=== PATIENT | male | born 1965 | race Caucasian/White ===

== ENCOUNTER 2019-09-14 | Emergency (ER) | payer BC ==
--- NOTE | 2019-09-14 09:23 | ER ---
Nurse's Notes [facility] Name: Brody Ferrer Age: 53 yrs Sex: Male : 1965 Arrival Date: 09/14/2019 Time: 08:42 Bed 13 Private MD: Duane Truong Diagnosis: Conjunctival hemorrhage Presentation: 09/13 08:57 Chief complaint: Patient states: LEFT EYE SUBCONJUNCTIVAL HEMORRHAGE. Coronavirus bp screen: The patient has NOT traveled to a country currently being monitored by the [facility] within the last 14 days. The patient has NOT had contact with any known and/or suspected case of coronavirus. Ebola Screen: No symptoms or risks identified at this time. Initial Sepsis Screen: Does the patient meet any 2 criteria? No. Patient's initial sepsis screen is negative. Does the patient have a suspected source of infection? No. Patient's initial sepsis screen is negative. Risk Assessment: Do you want to hurt yourself or someone else? Patient reports no desire to harm self or others. 08:57 Method Of Arrival: Ambulatory bp 08:57 Acuity: SANGEETHA 5 bp Triage Assessment: 09:00 General: Appears in no apparent distress. comfortable, obese, Behavior is cooperative, bp appropriate for age, anxious. Pain: Complains of pain in left eye. EENT: Sclera/Cornea are reddened in left eye. Neuro: No deficits noted. Cardiovascular: No deficits noted. Respiratory: No deficits noted. GI: No signs and/or symptoms were reported involving the gastrointestinal system. : No signs and/or symptoms were reported regarding the genitourinary system. Derm: No deficits noted. Musculoskeletal: No deficits noted. Historical: - Allergies: 09:00 No Known Allergies; bp - Home Meds: 09:00 None [Active]; bp - PMHx: 09:00 None; bp - Immunization history:: Adult Immunizations up to date. - Social history:: Smoking status: Patient denies any tobacco usage or history of. Screenin:02 Abuse screen: Denies threats or abuse. Denies injuries from another. Nutritional bp screening: No deficits noted. Tuberculosis screening: No symptoms or risk factors identified. Fall Risk None identified. Assessment: 09:02 General: SEE TRIAGE NOTE. bp 09:37 Reassessment: PT MED SCREENED BY ELIJAH. bp Vital Signs: 08:57 BP 131 / 77; Pulse 55; Resp 16; Temp 98; Pulse Ox 97% ; Weight 133.81 kg; Height 6 ft. bp 3 in. (190.50 cm); 09:19 BP 127 / 75; Pulse 56; Resp 16; Pulse Ox 97% ; bp 08:57 Body Mass Index 36.87 (133.81 kg, 190.50 cm) bp ED Course: 08:42 Patient arrived in ED. ag5 08:42 Duane Truong MD is Private Physician. ag5 08:57 Duane Alvarez, RN is Primary Nurse. bp 08:57 Vishal Deleon PA is PHCP. [facility] 08:57 Travis Garcia MD is Attending Physician. [facility] 08:59 Triage completed. bp 09:00 Arm band placed on. bp 09:02 Patient has correct armband on for positive identification. Bed in low position. Call bp light in reach. Side rails up X2. 09:37 No provider procedures requiring assistance completed. Patient did not have IV access bp during this emergency room visit. Administered Medications: No medications were administered Outcome: 09:22 Discharge ordered by . [facility] 09:38 Medical screen evaluation completed per provider. Patient declined treatment. bp 09:38 Condition: stable 09:38 Discharge instructions given to patient. 09:38 Patient left the ED. bp Signatures: Vishal Deleon PA PA jmm Peltier, Brian, RN RN bp Leon Aviles 5
--- NOTE | 2019-09-14 09:23 | EDPHYS ---
Physician Documentation [facility] Name: Brody Ferrer Age: 53 yrs Sex: Male : 1965 Arrival Date: 09/14/2019 Time: 08:42 Bed 13 Private MD: Duane Truong ED Physician Travis Garcia HPI: 09/13 09:00 This 53 yrs old Male presents to ER via Ambulatory with complaints of Eye jmm Problem. 09:00 The patient is experiencing redness. Onset: The symptoms/episode began/occurred jmm acutely, yesterday. Duration: the symptoms are continuous. Aggravated by nothing. Alleviated by tylenol. Associated signs and symptoms: Pertinent negatives: fever. This is a 53 year old male with no known chronic medical conditions that presents to the ED with complaints of redness to his left eye beginning yesterday. Patient was evaluated by his optomitrist and diagnosed with a bruise. Patient had his pressure checked at an urgent care. Patient came to the ED due to elevated blood pressure at home. Patient denies chest pain, headache, dysuria, abdominal pain or shortness of breath. . Historical: - Allergies: 09:00 No Known Allergies; bp - Home Meds: 09:00 None [Active]; bp - PMHx: 09:00 None; bp - Immunization history:: Adult Immunizations up to date. - Social history:: Smoking status: Patient denies any tobacco usage or history of. ROS: 09:00 Constitutional: Negative for fever, chills, and weight loss. jmm 09:00 Cardiovascular: Negative for chest pain, palpitations, and edema, Respiratory: Negative for shortness of breath, cough, wheezing, and pleuritic chest pain, Abdomen/GI: Negative for abdominal pain, nausea, vomiting, diarrhea, and constipation, Back: Negative for injury and pain, Neuro: Negative for headache, weakness, numbness, tingling, and seizure. 09:00 Eyes: Positive for redness. 09:00 All other systems are negative. Exam: 09:00 Constitutional: This is a well developed, well nourished patient who is awake, alert, jmm and in no acute distress. Head/Face: atraumatic. 09:00 ENT: Moist Mucus Membranes Neck: Trachea midline, Supple Chest/axilla: Normal chest wall appearance and motion. Cardiovascular: Regular rate and rhythm. No edema appreciated Respiratory: Normal respirations, no respiratory distress appreciated Abdomen/GI: Non distended, soft Back: Normal ROM Skin: General appearance color normal MS/ Extremity: Moves all extremities, no obvious deformities appreciated, no edema noted to the lower extremities Neuro: Awake and alert, normal gait Psych: Behavior is normal, Mood is normal, Patient is cooperative and pleasant 09:00 Eyes: Conjunctiva: subconjunctival hemorrhage(s), seen in the left eye. Vital Signs: 08:57 BP 131 / 77; Pulse 55; Resp 16; Temp 98; Pulse Ox 97% ; Weight 133.81 kg; Height 6 ft. bp 3 in. (190.50 cm); 09:19 BP 127 / 75; Pulse 56; Resp 16; Pulse Ox 97% ; bp 08:57 Body Mass Index 36.87 (133.81 kg, 190.50 cm) bp MDM: 09:00 Patient medically screened. [facility] 09:17 Data reviewed: vital signs, nurses notes. Medical screen evaluation completed. AXEL solorzano emergency medical condition absent. Administered Medications: No medications were administered Disposition: 09:17 Subconjunctival Hemorrhage. [facility] 16:28 Co-signature as Attending Physician, Travis Garcia MD I agree with the assessment and [facility] plan of care. Disposition: 09/14/19 09:22 Discharged to Home. Impression: Conjunctival hemorrhage. - Condition is Stable. - Medication Reconciliation Form, Thank You Letter, Antibiotic Education, Prescription Opioid Use form. - Follow up: Private Physician; When: As needed; Reason: Recheck today's complaints, Continuance of care, Re-evaluation by your physician. Signatures: Travis Garcia MD MD cha Mickail, Joel, PA PA Duane Richmond, RN RN bp Corrections: (The following items were deleted from the chart) 09:38 09:22 09/14/2019 09:22 Discharged to Home. Impression: Conjunctival hemorrhage. bp Condition is Stable. Forms are Medication Reconciliation Form, Thank You Letter, Antibiotic Education, Prescription Opioid Use. Follow up: Private Physician; When: As needed; Reason: Recheck today's complaints, Continuance of care, Re-evaluation by your physician. [facility]
== END 2019-09-14 09:38 | disposition home or self-care (01) ==
DX: H11.32 Conjunctival hemorrhage, left eye (principal)
CPT/HCPCS: 99281

== ENCOUNTER 2022-05-26 08:28 | Day surgery (SDC) | payer BC ==
[2022-05-20 14:47] LABS: Absolute Lymphocytes (CBC) 1.8 K/uL (0.7-4.9); Lymphocytes % 31.3 % (15.3-44.8); MCV 95.6 fL (80-100); MPV 7.8 fL (7.6-11.3); RBC Red Blood Cell Count 5.13 M/uL (4.33-5.43)
[2022-05-20 15:11] LABS: Albumin 3.8 g/dL (3.4-5.0); Bilirubin Total 0.4 mg/dL (0.2-1.0); Potassium 4.6 mmol/L (3.5-5.1); Protein, Total 7.3 g/dL (6.4-8.2)
[~2022-05-26 08:28] MED LIST: ATROPINE SULF 1 MG/10 ML SYR IV ONE; FENTANYL CITR 100 MCG/2 ML ONE; HEPA 1000U/500MLS 2,000 UNIT/1,000 ML BAG IV ONE; HEPARIN 10,000 UNIT/10 ML VIAL IV ONE; LIDOCAINE 1% 20 ML MDV ONE; MIDAZOLAM HCL 2 MG/2 ML INJ ONE; NITROGLYCERIN 100 MCG/ML SYR (for cath lab use only) IV ONE; NITROGLYCERIN/D5W 25 MG/250 ML BTL IV ONE
[2022-05-26] MEDS ORDERED: NA CHLORIDE 0.9% 500 ML ONE (08:48)
[2022-05-26] MEDS ORDERED: VERAPAMIL HCL 10 MG/4 ML VIAL IV ONE (09:11)
[2022-05-26] MEDS ORDERED: HEPARIN 10,000 UNIT/10 ML VIAL IV ONE (09:26)
[2022-05-26 11:17] VITALS: TEMP 98
[2022-05-26 11:49] VITALS: BP 130/70; O2SAT 99
== END 2022-05-26 11:49 | disposition home or self-care (01) ==
LOC: CCL 08:28
PROVIDERS: ATTEND Internal Medicine
DX: I25.118 Atherosclerotic heart disease of native coronary artery with other forms of angina pectoris (principal); R10.9 Unspecified abdominal pain; Z82.49 Family history of ischemic heart disease and other diseases of the circulatory system; Z83.3 Family history of diabetes mellitus
CPT/HCPCS: 85025; 36415; 80061; 80053; 93458; C1893; Q9966; J2250; J3010; J7040; J1644; J0461; J2001